=== PATIENT | female | born 1985 | race Caucasian/White ===

== ENCOUNTER 2016-08-22 19:59 | Emergency (ER) | payer MEDICAID ==
[2016-08-22] MEDS ORDERED: NO HOME MEDICATION (21:10)
== END 2016-08-22 21:38 ==
LOC: EDMED 19:59
DX: S52.122A Displaced fracture of head of left radius, initial encounter for closed fracture (principal); V00.131A Fall from skateboard, initial encounter; Y93.51 Activity, roller skating (inline) and skateboarding; Y92.019 Unspecified place in single-family (private) house as the place of occurrence of the external cause; Y99.8 Other external cause status